=== PATIENT | female | born 1980 | race Two or more races ===

== ENCOUNTER 2023-07-02 12:17 | Inpatient (IN) | payer OTHER ==
[~2023-07-02] VITALS: Ht 154.9 cm; Wt 87.1 kg
[~2023-07-02 12:17] MED LIST: AMOX1TAB12 PO; TUSSI PRES-B L120 M1 PO
[2023-07-02] MEDS ORDERED: SYNTHROID150 MCG PO (12:58)
[2023-07-02] MEDS ORDERED: NORETHIND-ETH1 EAC1 PO (13:00)
[2023-07-16] MEDS ORDERED: LIDOCAINE HCL/EPINEPHRINE 20 ML VIAL IJ ONE ×2 (06:53→09:00)
[2023-07-16] MEDS ORDERED: BUPIVACAINE HCL/PF 0.5% 30ML ML ONE (06:53)
[2023-07-16] MEDS ORDERED: METRONIDAZOLE/SODIUM CHLORIDE 500 MG/100 ML PIGGYBACK IV ONE ×2 (06:59→09:00)
[2023-07-16] MEDS ORDERED: CEFTRIAXONE SODIUM 2,000 MG VIAL ONE (06:59)
[2023-07-16] MEDS ORDERED: POVIDONE-IODINE 118 ML BOTT TOP ONE ×2 (07:43→09:00)
[2023-07-16] MEDS ORDERED: CEFTRIAXONE SODIUM 2,000 MG VIAL IV ONE (09:00)
[2023-07-16] MEDS ORDERED: BUPIVACAINE HCL/PF 0.5% 30ML ML IJ ONE (09:00)
[2023-07-16] MEDS ORDERED: VISTASEAL DUAL APPICATOR 1 EACH APPL TOP ONE ×2 (09:33→09:45)
[2023-07-16] MEDS ORDERED: THROMBIN,HU/FIBRINOGEN/CALCIUM 10 ML SYRINGE TOP ONE ×2 (09:34→09:45)
[2023-07-16] MEDS ORDERED: RINGERS SOLUTION,LACTATED 1,000 ML IV SCH (10:56)
[2023-07-16] MEDS ORDERED: CEFOXITIN SODIUM 2,000 MG VIAL IV SCH (10:57)
[2023-07-16] MEDS ORDERED: CELECOXIB 200 MG CAPSULE PO SCH (10:58)
[2023-07-16] MEDS ORDERED: ACETAMINOPHEN 325 MG TABLET PO SCH (10:59)
[2023-07-16] MEDS ORDERED: GABAPENTIN 100 MG CAPSULE PO SCH (10:59)
[2023-07-16] MEDS ORDERED: CEFOXITIN SODIUM 2,000 MG VIAL IV ONE (11:48)
[2023-07-16] MEDS ORDERED: ONDANSETRON HCL 2 MG/ML VIAL IM SCH (12:00)
[2023-07-16 12:37] LABS: HEMATOCRIT 41.5 % (36.0-45.00); HEMOGLOBIN 13.2 g/dL (12.0-15.00); MEAN CELL VOLUME 76.6 fL (80.00-100.00); MEAN CORPUSCULAR HEMOGLOBIN 24.3 pg (27.00-32.0); MEAN CORPUSCULAR HGB CONC 31.8 g/dl (32.0-36.0); PLATELET COUNT 364 K/uL (150-450); RED BLOOD COUNT 5.41 M/uL (4.00-6.00)
[2023-07-16 13:20] LABS: CALCIUM 8.5 mg/dL (8.5-10.1); CREATININE SERUM 0.67 mg/dL (0.55-1.02); GFR 96.52; POTASSIUM 4.55 mEq/L (3.5-5.1)
[2023-07-16 14:18] LABS: ABG PH 7.375 (7.35-7.45); ABG PO2 256.4 mmHg (80-100); BASE EXCESS -2.5 mmol/l; BICARBONATE 22.3 mmol/l (23-25); SaO2 99.8 %; Tco2 23.5 mmol/l
[2023-07-16 14:19] LABS: allen test SATISFACTORY; puncture site RADIAL RIGHT
[2023-07-16 14:21] LABS: o2 40 %
[2023-07-17 03:31] LABS: HEMATOCRIT 38.6 % (36.0-45.00); HEMOGLOBIN 12.6 g/dL (12.0-15.00); MEAN CELL VOLUME 77.6 fL (80.00-100.00); MEAN CORPUSCULAR HEMOGLOBIN 25.3 pg (27.00-32.0); MEAN CORPUSCULAR HGB CONC 32.6 g/dl (32.0-36.0); PLATELET COUNT 327 K/uL (150-450); RED BLOOD COUNT 4.97 M/uL (4.00-6.00); RED CELL DISTRIBUTION WIDTH 15.8 % (11.5-14.5)
[2023-07-17] MEDS ORDERED: PATIENTS OWN MEDICATION (MEDICAMENTO EN PISO) PO SCH (06:00)
== END 2023-07-17 10:24 | disposition home or self-care (01) | DRG 743 ==
LOC: SURH 07-09 12:45 → O/R 07-16 05:23 → SURH 07-16 07:00 → OB/GYN 07-16 13:07
PROVIDERS: Surgery; ADMIT Obstetrics & Gynecology Gynecology; ATTEND Obstetrics & Gynecology Gynecology
PROC: 0UT74ZZ Resection of Bilateral Fallopian Tubes, Percutaneous Endoscopic Approach (ICD-10-PCS; 2023-07-16)
PROC: 0DNW4ZZ Release Peritoneum, Percutaneous Endoscopic Approach (ICD-10-PCS; 2023-07-16)
PROC: 0TN74ZZ Release Left Ureter, Percutaneous Endoscopic Approach (ICD-10-PCS; 2023-07-16)
PROC: 0UN94ZZ Release Uterus, Percutaneous Endoscopic Approach (ICD-10-PCS; 2023-07-16)
PROC: 0UT94ZZ Resection of Uterus, Percutaneous Endoscopic Approach (ICD-10-PCS; principal; 2023-07-16 07:00)
PROC: 0UT24ZZ Resection of Bilateral Ovaries, Percutaneous Endoscopic Approach (ICD-10-PCS; 2023-07-16 07:00)
DX: D25.1 Intramural leiomyoma of uterus (principal); D25.0 Submucous leiomyoma of uterus; N80.03 Adenomyosis of the uterus; K66.0 Peritoneal adhesions (postprocedural) (postinfection); D27.0 Benign neoplasm of right ovary; N83.02 Follicular cyst of left ovary; Z20.822 Contact with and (suspected) exposure to COVID-19; N80.101 Endometriosis of right ovary, unspecified depth

== ENCOUNTER → 2023-07-03 08:33 | Outpatient (CLI) | payer OTHER ==
[~2023-07-03 08:33] MED LIST changes: +NORETHIND-ETH1 EAC1 PO; +SYNTHROID150 MCG PO
== END | disposition home or self-care (01) ==
LOC: LAB 08:33
PROVIDERS: ATTEND Internal Medicine Geriatric Medicine
DX: D68.9 Coagulation defect, unspecified (principal)